=== PATIENT | female | born 1970 | race Caucasian/White ===

== ENCOUNTER 2018-04-13 12:57 | Emergency (ER) | payer OTHER ==
[~2018-04-13] VITALS: Ht 162.6 cm; Wt 78.0 kg
[2018-04-13] MEDS ORDERED: IBUPROFEN 600 MG TABLET PO ONE (13:15)
[2018-04-13] MEDS ORDERED: IBUPROFEN 600 MG TABLET ONE (13:19)
--- NOTE | 2018-04-13 13:46 | NUR ---
Patient discharged to home in stable conditon. Written and verbal after care instructions given. Patient verbalizes understanding of instructions.
== END 2018-04-13 13:50 | disposition home or self-care (01) ==
LOC: ER 13:00
DX: S60.222A Contusion of left hand, initial encounter (principal); Z88.0 Allergy status to penicillin; V03.09XA Pedestrian with other conveyance injured in collision with car, pick-up truck or van in nontraffic accident, initial encounter; Y93.89 Activity, other specified; Y92.89 Other specified places as the place of occurrence of the external cause; Y99.8 Other external cause status
CPT/HCPCS: 73130; A4663